=== PATIENT | female | born 1990 | race Caucasian/White ===

== ENCOUNTER 2022-12-20 10:05 | Emergency (ER) | payer OTHER ==
--- OUTSIDE RECORDS SUMMARY | 2022-12-20 10:09 | XMS REPORT | Continuity of Care Document ---
:1990 Author Organization [facility] t Address [address] [place] [address] Care Team Providers Name Role Phone Unavailable Unavailable Unavailable Payers Payer Name Policy Type Policy Number Effective Date Expiration Date Benedicto watt [employer] P [id number] Medicaid Problems This patient has no known problems. Allergies, Adverse Reactions, Alerts This patient has no known allergies or adverse reactions. Medications This patient has no known medications. Procedures This patient has no known procedures. Encounters Start End Encounter Admission Attending Care Care Encounter Source Date/Time Date/Time Type Type Clinicians Facility Department ID 2021-08-22 Outpatient [facility] [id number] [facility] 05:09:22 [id number] [facility] 2021-04-29 Outpatient [facility] [id number] [facility] 15:09:04 [id number] [facility] 2021-02-27 Outpatient [facility] [id number] [facility] 13:49:49 [id number] [facility] 2021-02-27 Outpatient [facility] [id number] [facility] 11:33:15 [id number] [facility] 2022-12-20 2022-12-20 Outpatient [facility] [id number] 08:49:51 08:49:51 [id number] [facility] 2022-12-15 2022-12-15 Outpatient [facility] [id number] [facility] 09:37:47 09:37:47 [id number] [facility] Results This patient has no known results.
--- NOTE | 2022-12-20 10:30 | EDPHYS ---
Physician Documentation [facility] Name: Gianna Nicholson Age: 32 yrs Sex: Female : 1990 Arrival Date: 12/20/2022 Time: 10:05 Bed 3 Private MD: ED Physician Sharlene Leonard HPI: 12/20 10:22 This 32 yrs old Female presents to ER via Unassigned with complaints of Loss Of Vision sp3 - Right Eye. 10:22 32-year-old female with no significant past medical history who presents from local [facility] for chief complaint right sided eye vision changes. She states that approximately 3 days ago, she started having tunnel vision and darkened area in her visual field on the right eye on the right side. Left eye is not affected whatsoever and she denies any double vision. No prior history of retinal injury. She states that her symptoms spontaneously self resolved and are worse in the morning. She denies headache, other neurological abnormality, or blurry vision. Currently her symptoms are almost fully resolved in the ED. She does not have a local career professional she is not from the local area. On review of systems, she denies current headache, facial pain, neck pain, fever, URI symptoms, chest pain, shortness of breath, back pain, abdominal pain, nausea, vomiting, diarrhea, other neurological deficits including numbness tingling or weakness, syncope, near syncope, travel history, or any other signs or symptoms at this time.. Historical: - Allergies: 10:24 No Known Allergies; ss ROS: 10:26 Constitutional: Negative for fever, chills, and weight loss, ENT: Negative for injury, sp3 pain, and discharge, Neck: Negative for injury, pain, and swelling, Cardiovascular: Negative for chest pain, palpitations, and edema, Respiratory: Negative for shortness of breath, cough, wheezing, and pleuritic chest pain, Abdomen/GI: Negative for abdominal pain, nausea, vomiting, diarrhea, and constipation, Back: Negative for injury and pain, : Negative for injury, bleeding, discharge, and swelling, MS/Extremity: Negative for injury and deformity, Skin: Negative for injury, rash, and discoloration, Neuro: Negative for headache, weakness, numbness, tingling, and seizure, Psych: Negative for depression, anxiety, suicide ideation, homicidal ideation, and hallucinations, Allergy/Immunology: Negative for hives, rash, and allergies, Endocrine: Negative for neck swelling, polydipsia, polyuria, polyphagia, and marked weight changes, Hematologic/Lymphatic: Negative for swollen nodes, abnormal bleeding, and unusual bruising. 10:26 All other systems are negative. Exam: 10:26 Constitutional: This is a well developed, well nourished patient who is awake, alert, sp3 and in no acute distress. Head/Face: Normocephalic, atraumatic. Eyes: Pupils equal round and reactive to light, extra-ocular motions intact. Lids and lashes normal. Conjunctiva and sclera are non-icteric and not injected. Cornea within normal limits. Periorbital areas with no swelling, redness, or edema. ENT: Nares patent. No nasal discharge, no septal abnormalities noted. External auditory canals are clear. Oropharynx with no redness, swelling, or masses, exudates, or evidence of obstruction, uvula midline. Mucous membranes moist. Neck: Trachea midline, no thyromegaly or masses palpated, and no cervical lymphadenopathy. Supple, full range of motion without nuchal rigidity, or vertebral point tenderness. No Meningismus. Chest/axilla: Normal chest wall appearance and motion. Nontender with no deformity. No lesions are appreciated. Cardiovascular: Regular rate and rhythm with a normal S1 and S2. No gallops, murmurs, or rubs. Normal PMI, no JVD. No pulse deficits. Respiratory: Lungs have equal breath sounds bilaterally, clear to auscultation and percussion. No rales, rhonchi or wheezes noted. No increased work of breathing, no retractions or nasal flaring. Abdomen/GI: Soft, non-tender, with normal bowel sounds. No distension or tympany. No guarding or rebound. No evidence of tenderness throughout. Neuro: Awake and alert, GCS 15, oriented to person, place, time, and situation. Cranial nerves II-XII grossly intact. Motor strength 5/5 in all extremities. Sensory grossly intact. Cerebellar exam normal. Normal gait. Psych: Awake, alert, with orientation to person, place and time. Behavior, mood, and affect are within normal limits. Vital Signs: 10:22 BP 135 / 80; Pulse 65; Resp 16; Temp 98(TE); Pulse Ox 100% on R/A; Weight 73.94 kg; ss Height 6 ft. 0 in. ; Pain 0/10; 10:22 Body Mass Index 22.11 (73.94 kg, 182.88 cm) ss 10:22 Pain Scale: Adult ss MDM: 10:21 Patient medically screened. sp3 10:26 Data reviewed: vital signs, nurses notes. ED course: 32-year-old female with no sp3 significant past medical history presents with a resolved right sided right hemianopsia. Symptoms have been coming and going for 3 days now. Retinal exam is normal. Anterior chamber exam demonstrates no hyphema or other abnormality. I am not suspicious for acute angle glaucoma. Visual acuity is normal. All visual springer currently are grossly intact. There is no left-sided symptoms whatsoever. Given the limitations of our equipment here, I have advised her to follow-up with ophthalmology and/or optometry today if possible. She plans to going to a walk-in appointment at a local career professional. If her symptoms get worse with the return she can come back here for further reassessment. CT scan is not indicated at this time as she has resolved symptoms and no headache. We can potentially get that if her symptoms return. I believe for she needs to get a proper fully dilated eye exam.. Administered Medications: No medications were administered Disposition Summary: 12/20/22 10:29 Discharge Ordered Location: Home sp3 Condition: Stable sp3 Diagnosis - Right-sided visual deficit, resolved sp3 Followup: sp3 - With: Guera Day MD - When: Upon discharge from the Emergency Department - Reason: Further diagnostic work-up Discharge Instructions: - Discharge Summary Sheet sp3 - Visual Disturbances sp3 Forms: - Medication Reconciliation Form sp3 - Thank You Letter sp3 - Antibiotic Education sp3 - Prescription Opioid Use sp3 - Patient Portal Instructions sp3 Signatures: Kathi Sanchez RN RN ss Sharlene Leonard MD MD sp3
--- NOTE | 2022-12-20 10:30 | ER ---
Nurse's Notes [facility] Name: Gianna Nicholson Age: 32 yrs Sex: Female : 1990 Arrival Date: 12/20/2022 Time: 10:05 Bed 3 Private MD: Diagnosis: Right-sided visual deficit, resolved Presentation: 12/20 10:22 Chief complaint: Patient states: "For the past 3-4 days when I wake up I see black in ss my R eye." Pt reports it comes and goes, seems to be worse in the mornings. Currently a resident as [facility] rehab and states that the physician there recommended she come to ER for further evaluation. Coronavirus screen: Client denies travel out of the [place] in the last 14 days. Ebola Screen: Patient denies exposure to infectious person. Patient denies travel to an Ebola-affected area in the 21 days before illness onset. Initial Sepsis Screen: Does the patient meet any 2 criteria? Yes Does the patient have a suspected source of infection? No. Patient's initial sepsis screen is negative. Risk Assessment: Do you want to hurt yourself or someone else? Patient reports no desire to harm self or others. Onset of symptoms was December 16, 2022. 10:22 Method Of Arrival: Ambulatory ss 10:22 Acuity: SULEMAN 2 ss Historical: - Allergies: 10:24 No Known Allergies; ss Screenin:24 [facility] ED Fall Risk Assessment (Adult) History of falling in the last 3 months, ss including since admission No falls in past 3 months (0 pts). Abuse screen: Denies threats or abuse. Denies injuries from another. Nutritional screening: No deficits noted. Assessment: 10:24 General: Appears in no apparent distress. comfortable, Behavior is calm, cooperative. ss Pain: Denies pain. 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 Full function Gait is steady, Speech is normal, Facial droop on right, Pupils are PERRLA, Intact. Cardiovascular: Capillary refill < 3 seconds is brisk in bilateral fingers. Respiratory: Airway is patent Respiratory effort is even, unlabored, Respiratory pattern is regular, symmetrical. GI: Patient currently denies nausea. EENT: Reports Intermittent loss of partial vision in R eye x 3-4 days. Pt reports it appears black, which is worse in the morning. Derm: Skin is intact, is healthy with good turgor, Skin is pink, warm \\T\\ dry. normal. Vital Signs: 10:22 BP 135 / 80; Pulse 65; Resp 16; Temp 98(TE); Pulse Ox 100% on R/A; Weight 73.94 kg; ss Height 6 ft. 0 in. ; Pain 0/10; 10:22 Body Mass Index 22.11 (73.94 kg, 182.88 cm) ss 10:22 Pain Scale: Adult ss ED Course: 10:08 Patient arrived in ED. mg5 10:13 Sharlene Leonard MD is Attending Physician. sp3 10:22 Kathi Sanchez RN is Primary Nurse. ss 10:24 Triage completed. ss 10:24 Arm band placed on right wrist. ss 10:24 Patient has correct armband on for positive identification. ss 10:24 No provider procedures requiring assistance completed. Patient did not have IV access ss during this emergency room visit. 10:28 Guera Day MD is Referral Physician. sp3 Administered Medications: No medications were administered Medication: 10:24 VIS not applicable for this client. ss Outcome: 10:29 Discharge ordered by . sp3 10:38 Discharged to home ambulatory. ss 10:38 Condition: good 10:38 Discharge instructions given to patient, Instructed on discharge instructions, follow up and referral plans. Demonstrated understanding of instructions, follow-up care. 10:39 Patient left the ED. ss Signatures: Kathi Sanchez RN RN Sharlene Leonard MD MD sp3 Bere Lam mg5
[2022-12-20 10:50] VITALS: BP 135/80; TEMP 98; O2SAT 100
== END 2022-12-20 10:39 | disposition home or self-care (01) ==
LOC: ER 10:05
DX: H54.61 Unqualified visual loss, right eye, normal vision left eye (principal)